=== PATIENT | male | born 1950 | race Caucasian/White ===

== ENCOUNTER → 2018-03-12 | Outpatient (CLI) | payer BC, MEDICARE ==
--- NOTE | 2018-03-12 14:53 | RAD ---
EXAM: Lumbar spine, 3 views. HISTORY: Pain. COMPARISON: None. FINDINGS: 3 views of the lumbar spine are obtained. There is lumbar dextroscoliosis centered at L4. There is mild retrolisthesis of L2 on L3 and L3 on L4. There is degenerative endplate remodeling with disc space narrowing and osteophytosis primarily at L2-L3. There is facet arthropathy at all levels. IMPRESSION: 1. Multilevel degenerative change, described above. 2. Mild scoliosis and multilevel listhesis. Electronically signed by: Kiley Pratt MD (03/12/2018 2:50 PM) [place] [id number]
== END | disposition home or self-care (01) ==
LOC: RAD 12:26
PROVIDERS: ATTEND Neurological Surgery
DX: M41.86 Other forms of scoliosis, lumbar region (principal); M47.896 Other spondylosis, lumbar region
CPT/HCPCS: 72100

== ENCOUNTER → 2018-03-25 | Outpatient (CLI) | payer BC, MEDICARE ==
[~2018-03-25] MED LIST: ASPI-630 PO; CBD OIL PO; CLOP75TA PO; DOCU-109 PO; HYDR-2762 PO; LISI1TAB5 PO; METF500T9 PO; METH750T2 PO
--- NOTE | 2018-03-25 16:09 | EKG ---
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 Electronically Signed On 03-28-2018 11:42:20 CDT by Devaughn Coelho MD
[2018-03-25 16:11] LABS: BASO # 0.1 x10^3/uL (0.0-0.2); BASO % 1 % (0-3); EOS # 0.3 x10^3/uL (0.0-0.7); EOS % 3 % (0-3); HEMATOCRIT 46.5 % (39.0-53.0); HEMOGLOBIN 15.9 g/dL (13.0-17.5); LYMPH # 2.2 x10^3/uL (1.0-4.8); LYMPH % 22 % (24-48); MEAN CORPUSCULAR HEMOGLOBIN 29 pg (25-35); MEAN CORPUSCULAR HGB CONC 34 g/dL (31-37); MEAN CORPUSCULAR VOLUME 84 fL (79-100); MONO % 10 % (0-9); NEUT # 6.7 x10^3uL (1.8-7.7); NEUT % 65 % (31-73); PLATELET COUNT 258 x10^3/uL (140-400); RED BLOOD COUNT 5.52 x10^6/uL (4.30-5.70); RED CELL DISTRIBUTION WIDTH 14.7 % (11.5-14.5); WHITE BLOOD COUNT 10.3 x10^3/uL (4.0-11.0)
[2018-03-25 16:41] LABS: ALBUMIN 3.7 g/dL (3.4-5.0); ALBUMIN/GLOBULIN RATIO 0.9 (1.0-1.7); CALCIUM 8.9 mg/dL (8.5-10.1); CREATININE 1.4 mg/dL (0.7-1.3); GFR 50.4; TOTAL BILIRUBIN 0.4 mg/dL (0.2-1.0); TOTAL PROTEIN 7.9 g/dL (6.4-8.2)
[2018-03-26 02:17] LABS: HEMOGLOBIN A1C 6.7 % (4.8-5.6)
== END | disposition home or self-care (01) ==
LOC: SURGPAT 13:39
PROVIDERS: ATTEND Neurological Surgery
DX: Z01.818 Encounter for other preprocedural examination (principal); M51.16 Intervertebral disc disorders with radiculopathy, lumbar region; M48.061 Spinal stenosis, lumbar region without neurogenic claudication; D17.79 Benign lipomatous neoplasm of other sites; M71.38 Other bursal cyst, other site; I10 Essential (primary) hypertension
CPT/HCPCS: 36415; 80053; 83036; 85025; 87641; 93005

== ENCOUNTER 2018-04-01 08:18 | Inpatient (IN) | payer BC, MEDICARE ==
--- NOTE | 2018-03-29 18:03 | PREOP HP ---
DATE OF SERVICE: 04/01/2018 HISTORY OF PRESENT ILLNESS: The patient is a pleasant 67-year-old who is having problems with low back pain and numbness on his right leg along with right hip and lateral thigh pain as well as pain and numbness in the leg on the right. The problem started about 3 years ago. Over the last year, it became more severe. He says when he tries to be active, the pain is a 10/10. Bending and standing increases pain. Sitting seems to help him. He has had chiropractic treatment extensively without significant benefit. PAST MEDICAL HISTORY: Arthritis, prostate cancer, heart attack/failure, heart trouble/disease, hypertension, diabetes. PAST SURGICAL HISTORY: Bypass surgery in 1999, coronary artery stent 2017. FAMILY HISTORY: Diabetes. SOCIAL HISTORY: Retired. . Denies exercising. Denies substance abuse. Denies tobacco use. Drinks alcohol 1-2 times per year. Drinks coffee and tea daily. ALLERGIES: No known drug allergies. CURRENT MEDICATIONS: Plavix, metformin and lisinopril. REVIEW OF SYSTEMS: A 12-point review of systems was obtained and is noncontributory except that mentioned above. PHYSICAL EXAMINATION: NEUROSURGERY EXAMINATION: GENERAL APPEARANCE: Alert, pleasant, no acute distress. HEAD: Normocephalic, atraumatic. SKIN: Warm and dry. MUSCULOSKELETAL: Lumbar paraspinal muscle bulk is normal, restricted range of motion of the lumbar spine, [id number] tenderness of lower lumbar spine with palpation, normal range of motion of the lower extremities bilaterally. EXTREMITIES: No clubbing, cyanosis or edema. NEUROLOGIC: Alert and oriented x 3, normal recent and remote memory, strength 5/5 in bilateral lower extremities. Sensory is intact to light touch in bilateral lower extremities. Reflexes were trace and symmetric in the lower extremities bilaterally, negative straight leg raising bilaterally. IMAGING: I reviewed a lumbar MRI scan. There appears to be an element of scoliosis present. He has severe lumbar spinal stenosis present at L2-L3 due to a combination of epidural lipomatosis and congenital short pedicles. At L3-L4, again there are congenital short pedicles and at this level, there is a left synovial cyst. There is also epidural lipomatosis. The spinal canal at this level has symmetric trefoil appearance. At L4-L5, there is congenitally short pedicles and epidural lipomatosis with trefoil appearance of the thecal sac and nerve root redundancy superior to this level. ASSESSMENT/ PLAN: He has problems with congenitally small canal. There is also epidural lipomatosis and hypertrophic ligament. Additionally, at L3-L4, there is synovial cyst. After evaluating his scoliosis with plain films and based on the severity of his symptoms, my recommendation is that he undergo a lumbar microdecompression with right direct laminectomy at L2-L3, L3-L4 and L4-L5. I explained this to the patient. He understands. He would like to go ahead. We will make the arrangements. SIMÓN BLACK MD DR: RADHA/henrry JOB#: [id number] / [id number] FRANK
[~2018-04-01] VITALS: Ht 182.9 cm; Wt 108.0 kg
[2018-04-01] VITALS (9 sets, daily range): BP systolic 112–143; BP diastolic 63–87
[~2018-04-01 08:18] MED LIST changes: +BACITRACIN 50,000 UNIT in IV NORMAL SALINE 1000ML BAG 1,000 ML IRR ONE; +BUPIVAC MPF-EPI 0.5%-1:200000 30 ML VIAL. ONE; -DOCU-109 PO; +GELATIN SPONGE SIZE 100. ONE; -HYDR-2762 PO; +HYDROmorphone 2 MG/ML VIAL IV PRN; +IV RINGERS,LACTATED 1000ML 1,000 ML IV SCH; +KETOROLAC 60 MG/2 ML INJ FOR OR. ONE; +LIDOCAINE 1% PF 2 ML VIAL. ID PRN; -METH750T2 PO; +MORPHINE SULFATE 2 MG/ML VIAL. IV PRN; +ONDANSETRON PF 4 MG/2 ML VIAL. IV PRN; +PROCHLORPERAZINE 10 MG/2 ML VIAL. IV PRN; +fentaNYL PF VIAL 100 MCG/2 ML VIAL IV PRN
--- NOTE | 2018-04-01 09:04 | EKG ---
[facility] [address] [place] [address] Test Date: 2018-04-01 Test Time: 09:12:49 Pat Name: GONZALEZ ECHEVERRIA Department: Room: Gender: M Loom Repairer: : 1950 Requested By: SIMÓN BLACK Order Number: [id number] Reading MD: Devaughn Coleho MD Measurements Intervals [place] Rate: 81 P: -89 IN: 170 QRS: -10 QRSD: 130 T: -44 QT: 406 QTc: 472 Interpretive Statements SINUS RHYTHM LAFB NON-SPECIFIC ST/T CHANGES Electronically Signed On 04-01-2018 15:34:28 [employer]CH STORE MANAGER by Devaughn Coelho MD
[2018-04-01] MEDS ORDERED: PROPOFOL 100 ML IV ONE (09:24)
[2018-04-01] MEDS ORDERED: GLYCOPYRROLATE 1 MG/5 ML VIAL. ONE (09:29)
[2018-04-01] MEDS ORDERED: fentaNYL PF VIAL 100 MCG/2 ML VIAL ONE (09:30)
[2018-04-01] MEDS ORDERED: MIDAZOLAM HCL/PF 2 MG/2 ML VIAL. ONE (09:30)
[2018-04-01] MEDS ORDERED: NEOSTIGMINE METHYLSULFATE 5 MG/5 ML SYRINGE. ONE (09:30)
[2018-04-01] MEDS ORDERED: ROCURONIUM 50 MG/5 ML VIAL. ONE (09:30)
[2018-04-01] MEDS ORDERED: REMIFENTANIL 2 MG VIAL. IV ONE (09:30)
[2018-04-01] MEDS ORDERED: ONDANSETRON PF 4 MG/2 ML VIAL. ONE (09:31)
[2018-04-01] MEDS ORDERED: MINERAL OIL/PETROLATUM,WHITE OPHTH OINT 3.5GM TUBE. ONE (09:31)
[2018-04-01] MEDS ORDERED: DEXAMETHASONE SOD PHOS 20 MG/5 ML VIAL. ONE (09:31)
[2018-04-01] MEDS ORDERED: PHENYLEPHRINE 10 MG/ML VIAL. ONE (09:31)
[2018-04-01] MEDS ORDERED: PROPOFOL 20 ML IV ONE (09:31)
[2018-04-01] MEDS ORDERED: DESFLURANE > 120 MINUTES IH ONE (09:36)
[2018-04-01] MEDS: POTASSIUM CL 20MEQ-0.45% NACL 1,000 ML IV SCH ×2 (11:31→17:37)
[2018-04-01] MEDS ORDERED: ONDANSETRON PF 4 MG/2 ML VIAL. IV PRN (11:45)
[2018-04-01] MEDS ORDERED: 0.9 % SODIUM CHLORIDE 10 ML DISP.SYRIN. IV PRN (11:45)
[2018-04-01] MEDS ORDERED: MAG HYDROX/ALUMINUM HYD/SIMETH 30 ML ORAL.SUSP PO PRN (11:45)
[2018-04-01] MEDS ORDERED: MAGNESIUM HYDROXIDE 2,400 MG/30 ML ORAL.SUSP. PO PRN (11:45)
[2018-04-01] MEDS ORDERED: DEXTROSE 50% 25 GM / 50ML DISP.SYRIN. IV PRN (11:45)
[2018-04-01] MEDS ORDERED: diphenhydrAMINE HCL 25 MG CAPSULE PO PRN (11:45)
[2018-04-01] MEDS ORDERED: CALCIUM CARBONATE 500 MG TAB.CHEW PO PRN (11:45)
[2018-04-01] MEDS ORDERED: ZOLPIDEM 5 MG TABLET. PO PRN (11:45)
[2018-04-01] MEDS ORDERED: NALOXONE 0.4 MG/ML VIAL. IV PRN (11:45)
[2018-04-01] MEDS ORDERED: hydroCHLOROthiazide 12.5 MG CAPSULE PO SCH (13:00)
[2018-04-01] MEDS: LISINOPRIL 20 MG TABLET PO SCH (13:00)
[2018-04-01] MEDS: METHOCARBAMOL 750 MG TABLET PO SCH ×2 (14:00→21:14)
[2018-04-01] MEDS: fentaNYL PF VIAL 100 MCG/2 ML VIAL IV PRN ×6 (15:13→22:22)
--- NOTE | 2018-04-01 16:34 | OP ---
DATE OF SURGERY: 04/01/2018 PREOPERATIVE DIAGNOSES: 1. Epidural lipomatosis and lumbar spinal stenosis at L2-L3, L3-L4, L4-L5. 2. Synovial cyst, L3-L4, left. POSTOPERATIVE DIAGNOSES: 1. Epidural lipomatosis and lumbar spinal stenosis at L2-L3, L3-L4, L4-L5. 2. Synovial cyst, L3-L4, left. OPERATION PERFORMED: Right direct laminectomy L2-L3, L3-L4, L4-L5 with debulking of epidural lipomatosis and removal of synovial cyst. The operation was done with EMG monitoring, SSEP monitoring, fluoroscopy, microscopic dissection. SURGEON: Real Black M.D. GROUND INTELLIGENCE OFFICER: NANCI Ang assisted with the surgery. She assisted with the micro decompression. OPERATIVE INDICATIONS: The patient is a pleasant 67-year-old man who developed intractable back and right leg pain which failed conservative measures. On imaging studies, he was found to have stenosis at L2-L3, L3-L4 and L4-L5 with very severe stenosis at L3-L4. At L3-L4, in addition to the trefoil-shaped canal and hypertrophic facet and ligament, there was a left-sided synovial cyst. I recommended right direct laminectomies at L2-L3, L3-L4 and L4-L5. I spoke with him about the surgery and the risks involved. He understood and he wished to go ahead. DESCRIPTION OF PROCEDURE: Following general endotracheal anesthesia, the patient was positioned prone on the Joaquín table. Lumbar region was prepped and draped in standard fashion. AGUILAR hose and AV impulse boots were applied for DVT prophylaxis. Microscope was draped. Fluoroscopy was draped and brought into the field. Monitoring was established. Ancef 2 grams was given less than 1 hour prior to initiation of surgery. Using fluoroscopic guidance, an incision was made from L2 to L5. I dissected down the second skin and subcutaneous tissue, reflected the paraspinal muscles toward the right and directed my attention to L4-L5. I placed the [place] micro disc retractor. I brought in the microscope and the remainder of surgery was done with the microscope using microscopic technique. I burred down a generous hemilaminotomy. I tilted the bed away from me and then drilled across to the contralateral midline. There was a very abundant epidural fat, which was markedly compressing the dura and I worked and peeled this material away. I then performed a generous partial foraminotomy. I worked laterally and palpated the disc, which was bulging, but heavily calcified and no discectomy was warranted. There were a number of very large epidural veins, which I coagulated. Following this, I obtained hemostasis with the use of bone wax as well as bipolar cautery. I then moved up to L3-L4 and in a similar fashion drilled a very generous hemilaminotomy, tilted the patient away from me and then drilled across the base of the spinous process on the contralateral side and then began to drill away the synovial cyst. The majority of the cyst was heavily calcified and I worked and I drilled the majority of this. The inferior small portion of the cyst was again calcified and was not amenable to complete removal, although the overall structure had been vastly debulked. I worked and trimmed away ligamentum flavum and fully decompressed the entire region. I then worked superiorly, inferiorly and removed epidural fat and decompressed the dura. I performed a generous partial foraminotomy. I again palpated the disc, it was firm, no discectomy was warranted. I did remove bone quite far inferiorly and removed much of the epidural fat that I could reach. I then went to L2-L3, and performed a similar generous hemilaminotomy, trimmed away the very thickened ligamentum flavum, performed a partial foraminotomy and drilled and fully decompressed this level as well, again removing a considerable amount of epidural fat and fully decompressing the entire region. I irrigated copiously with antibiotic solution and I had an excellent decompression at all 3 levels. I removed the retractor and I obtained excellent hemostasis. I closed the wound in layers with absorbable suture and skin was closed with 4-0 subcuticular stitch. The operation went very well and the patient was awakened and taken to Recovery Room in excellent condition. I was quite pleased with the surgery. REAL BLACK MD DR: RADHA/henrry JOB#: [id number] / [id number] FRANK
[2018-04-01] MEDS ORDERED: fentaNYL PF VIAL 100 MCG/2 ML VIAL IV PRN (16:45)
[2018-04-01] MEDS: HYDROcodone/APAP 7.5/325MG 1 TAB TABLET PO PRN ×2 (17:37→23:45)
[2018-04-01] MEDS: metFORMIN XR 500 MG TAB.ER.24H PO SCH (17:37)
[2018-04-01] MEDS: DOCUSATE SODIUM 100 MG CAPSULE. PO SCH (21:00)
[2018-04-01] MEDS: ACETAMINOPHEN 325 MG TABLET. PO PRN (21:14)
[2018-04-02 03:04] VITALS: BP 120/68
[2018-04-02] MEDS: HYDROcodone/APAP 7.5/325MG 1 TAB TABLET PO PRN ×3 (06:17→19:50)
[2018-04-02 07:01] VITALS: BP 123/75
[2018-04-02] MEDS: DOCUSATE SODIUM 100 MG CAPSULE. PO SCH ×2 (08:10→21:27)
[2018-04-02] MEDS: ASPIRIN CHEWABLE 81 MG TABLET. PO SCH (08:10)
[2018-04-02] MEDS: metFORMIN XR 500 MG TAB.ER.24H PO SCH (08:10)
[2018-04-02] MEDS: hydroCHLOROthiazide 12.5 MG CAPSULE PO SCH (08:10)
[2018-04-02] MEDS: METHOCARBAMOL 750 MG TABLET PO SCH ×3 (08:11→19:50)
[2018-04-02] MEDS: LISINOPRIL 20 MG TABLET PO SCH (08:11)
[2018-04-02] MEDS ORDERED: METH750T2 PO (08:38)
[2018-04-02] MEDS ORDERED: DOCU-109 PO (08:38)
[2018-04-02] MEDS ORDERED: HYDR-2762 PO (08:38)
--- NOTE | 2018-04-02 09:02 | PDOC ---
PROGRESS NOTES Subjective Subjective POD #1 not OOB yet back sore Objective Objective Vital Signs Date Time Temp Pulse Resp B/P (MAP) Pulse Ox O2 Delivery O2 Flow Rate FiO2 04/02/18 08:11 91 123/75 04/02/18 07:50 Room Air 04/02/18 07:01 98.9 16 94.0 98.9 04/02/18 06:17 93 Intake and Output 04/02/18 07:00 Intake Total 3560 ml Output Total 900 ml Balance 2660 ml Intake Oral 1000 ml IV Total 2180 ml Other 380 ml Output Urine Total 850 ml Estimated Blood Loss 50 ml Physical Exam General: Alert, Oriented X3, Cooperative, No acute distress MUSCULOSKELETAL: Other (SILVA) Skin: Other (dressing C,D,I, flat) Plan Plan of Care possible dc later today if does OK with PT Comment Review of Relevant I have reviewed the following items maira (where applicable) has been applied. Labs Laboratory Tests Test 04/01/18 09:27 04/01/18 16:09 04/02/18 06:16 Glucose (Fingerstick) 168 mg/dL (70-99) 194 mg/dL (70-99) 126 mg/dL (70-99) Laboratory Tests Test 04/01/18 09:27 04/01/18 16:09 04/02/18 06:16 Glucose (Fingerstick) 168 mg/dL (70-99) 194 mg/dL (70-99) 126 mg/dL (70-99) Medications Current Medications Ondansetron HCl (Zofran) 4 mg PRN Q6HRS PRN IV NAUSEA/VOMITING; Start 04/01/18 at 07:00; Stop 04/02/18 at 06:59; Status DC Fentanyl Citrate (Fentanyl 2ml Vial) 25 mcg PRN Q5MIN PRN IV MILD PAIN; Start 04/01/18 at 07:00; Stop 04/02/18 at 06:59; Status DC Fentanyl Citrate (Fentanyl 2ml Vial) 50 mcg PRN Q5MIN PRN IV MODERATE TO SEVERE PAIN Last administered on 04/01/18at 16:10; Start 04/01/18 at 07:00; Stop 04/02/18 at 06:59; Status DC Morphine Sulfate (Morphine Sulfate) 1 mg PRN Q10MIN PRN IV SEVERE PAIN; Start 04/01/18 at 07:00; Stop 04/02/18 at 06:59; Status DC Ringer's Solution 1,000 ml @ 30 mls/hr Q24H IV Last administered on 04/01/18at 09:32; Start 04/01/18 at 07:00; Stop 04/01/18 at 18:59; Status DC Lidocaine HCl (Xylocaine-Mpf 1% 2ml Vial) 2 ml PRN 1X PRN ID PRIOR TO IV START ; Start 04/01/18 at 07:00; Stop 04/02/18 at 06:59; Status DC Hydromorphone HCl (Dilaudid) 0.5 mg PRN Q10MIN PRN IV SEV PAIN, Second choice; Start 04/01/18 at 07:00; Stop 04/02/18 at 06:59; Status DC Prochlorperazine Edisylate (Compazine) 5 mg PACU PRN PRN IV NAUSEA, MRX1; Start 04/01/18 at 07:00; Stop 04/02/18 at 06:59; Status DC Bacitracin 77762 unit/Sodium Chloride 1,000 ml @ 1,000 mls/hr 1X ONCE IRR Last administered on 04/01/18at 12:04; Start 04/01/18 at 06:00; Stop 04/01/18 at 06:59; Status DC Cefazolin Sodium/ Dextrose 50 ml @ 100 mls/hr 1X PREOP PRN IV PRIOR TO PROCEDURE Last administered on 04/01/18at 11:37; Start 04/01/18 at 06:00; Stop 04/01/18 at 18:00; Status DC Gelatin (Gelfoam Size 100) 1 each STK-MED ONCE .ROUTE Last administered on 04/01/18at 12:04; Start 04/01/18 at 07:17; Stop 04/01/18 at 07:18; Status DC Bupivacaine HCl/ Epinephrine Bitart (Sensorcain-Mpf Epi 0.5%-1:[id number]) 30 ml STK -MED ONCE .ROUTE Last administered on 04/01/18at 12:04; Start 04/01/18 at 07:17 ; Stop 04/01/18 at 07:18; Status DC Ketorolac Tromethamine (Toradol For Or Only) 60 mg STK-MED ONCE .ROUTE Last administered on 04/01/18at 12:04; Start 04/01/18 at 07:17; Stop 04/01/18 at 07:18 ; Status DC Propofol 100 ml @ As Directed STK-MED ONCE IV ; Start 04/01/18 at 09:24; Stop 04/01/18 at 09:25; Status DC Glycopyrrolate (Robinul) 1 mg STK-MED ONCE .ROUTE ; Start 04/01/18 at 09:29; Stop 04/01/18 at 09:30; Status DC Fentanyl Citrate (Fentanyl 2ml Vial) 100 mcg STK-MED ONCE .ROUTE ; Start at 09:30; Stop 04/01/18 at 09:31; Status DC Rocuronium [place] (Zemuron) 50 mg STK-MED ONCE .ROUTE ; Start 04/01/18 at 09:30 ; Stop 04/01/18 at 09:31; Status DC Neostigmine Methylsulfate (Neostigmine Methylsulfate) 5 mg STK-MED ONCE .ROUTE ; Start 04/01/18 at 09:30; Stop 04/01/18 at 09:31; Status DC Midazolam HCl (Versed) 2 mg STK-MED ONCE .ROUTE ; Start 04/01/18 at 09:30; Stop 04/01/18 at 09:31; Status DC Remifentanil HCl (Ultiva) 2 mg STK-MED ONCE IV ; Start 04/01/18 at 09:30; Stop 04/01/18 at 09:31; Status DC Propofol 20 ml @ As Directed STK-MED ONCE IV ; Start 04/01/18 at 09:31; Stop at 09:32; Status DC Multi-Ingred Cream/Lotion/Oil/ Oint (Artificial Tears Eye Ointment) 7 cornelia STK- MED ONCE .ROUTE ; Start 04/01/18 at 09:31; Stop 04/01/18 at 09:32; Status DC Dexamethasone Sodium Phosphate (Decadron) 20 mg STK-MED ONCE .ROUTE ; Start 04/01/18 at 09:31; Stop 04/01/18 at 09:32; Status DC Ondansetron HCl (Zofran) 4 mg STK-MED ONCE .ROUTE ; Start 04/01/18 at 09:31; Stop 04/01/18 at 09:32; Status DC Phenylephrine HCl (Td-Synephrine Inj) 10 mg STK-MED ONCE .ROUTE ; Start at 09:31; Stop 04/01/18 at 09:32; Status DC Desflurane (Suprane) 90 ml STK-MED ONCE IH ; Start 04/01/18 at 09:36; Stop 04/01 at 09:37; Status DC Aspirin (Children'S Aspirin) 81 mg DAILY PO Last administered on 04/02/18at 08: 10; Start 04/02/18 at 09:00 Lisinopril (Prinivil) 20 mg DAILY PO Last administered on 04/02/18at 08:11; Start 04/01/18 at 13:00 Hydrochlorothiazide (Microzide) 12.5 mg DAILY PO ; Start 04/01/18 at 13:00; Stop 04/01/18 at 17:01; Status DC Dextrose (Dextrose 50%-Water Syringe) 12.5 gm PRN Q15MIN PRN IV SEE COMMENTS; Start 04/01/18 at 11:45 Acetaminophen (Tylenol) 650 mg PRN Q6HRS PRN PO MILD PAIN / TEMP Last administered on 04/01/18at 21:14; Start 04/01/18 at 11:45 Al Hydroxide/Mg Hydroxide (Mylanta Plus Xs) 30 ml PRN Q3HRS PRN PO HEARTBURN / GAS; Start 04/01/18 at 11:45 Calcium Carbonate/ Glycine (Tums) 500 mg PRN Q3HRS PRN PO INDIGESTION; Start 04/01/18 at 11:45 Diphenhydramine HCl (Benadryl) 25 mg PRN Q6HRS PRN PO ITCHING; Start 04/01/18 at 11:45 Zolpidem Tartrate (Ambien) 5 mg PRN QHS PRN PO INSOMNIA, MAY REPEAT IN 1HR; Start 04/01/18 at 11:45 Naloxone HCl (Narcan) 0.1 mg PRN Q2MIN PRN IV ADMIN; Start 04/01/18 at 11:45 Sodium Chloride (Normal Saline Flush) 3 ml QSHIFT PRN IV AFTER MEDS AND BLOOD DRAWS; Start 04/01/18 at 11:45 Potassium Chloride/Sodium Chloride 1,000 ml @ 75 mls/hr [id number] IV Last administered on 04/01/18at 17:37; Start 04/01/18 at 11:31; Stop 04/02/18 at 08:48 ; Status DC Methocarbamol (Robaxin) 750 mg TID PO Last administered on 04/02/18at 08:11; Start 04/01/18 at 14:00 Docusate Sodium (Colace) 100 mg BID PO Last administered on 04/02/18at 08:10; Start 04/01/18 at 21:00 Magnesium Hydroxide (Milk Of Magnesia) 2,400 mg PRN Q12HR PRN PO CONSTIPATION; Start 04/01/18 at 11:45 Ondansetron HCl (Zofran) 4 mg PRN Q6HRS PRN IV NAUESA, 1ST CHOICE; Start at 11:45 Acetaminophen/ Hydrocodone Bitart (Lortab 7.5/325) 1 tab PRN Q6HRS PRN PO PAIN Last administered on 04/01/18at 17:37; Start 04/01/18 at 11:45 Acetaminophen/ Hydrocodone Bitart (Lortab 7.5/325) 2 tab PRN Q6HRS PRN PO PAIN Last administered on 04/02/18at 06:17; Start 04/01/18 at 11:45 Fentanyl Citrate (Fentanyl 2ml Vial) 50 mcg PRN Q2HR PRN IV PAIN Last administered on 04/01/18at 22:22; Start 04/01/18 at 16:45 Fentanyl Citrate (Fentanyl 2ml Vial) 25 mcg PRN Q2HR PRN IV PAIN; Start at 16:45 Metformin HCl (Glucophage Xr) 500 mg DAILYWBKFT PO Last administered on at 08:10; Start 04/01/18 at 17:30 Hydrochlorothiazide (Microzide) 12.5 mg DAILY PO Last administered on at 08:10; Start 04/02/18 at 09:00 Clopidogrel Bisulfate (Plavix) 75 mg DAILYWBKFT PO ; Start 04/02/18 at 09:00 Active Scripts Active Reported [Cbd Oil] 1 Cornelia PO DAILY Clopidogrel (Clopidogrel Bisulfate) 75 Mg Tablet 75 Mg PO DAILY Lisinopril-Hctz 20-12.5 Mg Tab (Lisinopril/Hydrochlorothiazide) 1 Each Tablet 1 Tab PO DAILY Metformin Hcl Er (Metformin Hcl) 500 Mg Tab.er.24h 500 Mg PO DAILY Aspirin 81 Mg Tab.chew 81 Mg PO DAILY Vitals/I & O Vital Sign - Last 24 Hours 04/01/18 04/01/18 04/01/18 04/01/18 09:29 09:30 14:48 14:48 Temp 98.5 98.5 99.0 98.5 98.5 99.0 Pulse 81 97 89 Resp 16 16 18 B/P (MAP) 112/65 135/62 Pulse Ox 95 96 98 O2 Delivery Room Air Simple Mask Mask O2 Flow Rate 8 8 04/01/18 04/01/18 04/01/18 04/01/18 15:05 15:13 15:20 15:25 Pulse 100 102 Resp 24 20 20 20 B/P (MAP) 139/53 140/87 Pulse Ox 99 93 95 96 O2 Delivery Simple Mask Room Air Room Air Room Air O2 Flow Rate 8 04/01/18 04/01/18 04/01/18 04/01/18 15:40 15:55 16:10 16:22 Pulse 97 100 Resp 16 16 20 20 B/P (MAP) 163/48 126/54 Pulse Ox 96 95 95 93 O2 Delivery Room Air Room Air Room Air Room Air 04/01/18 04/01/18 04/01/18 04/01/18 16:30 16:44 16:45 17:00 Temp 98.5 98.5 Pulse 90 94 94 Resp 18 20 20 B/P (MAP) 120/63 (82) 112/68 (83) 143/87 (105) Pulse Ox 92 93 94 O2 Delivery Nasal Cannula Nasal Cannula Nasal Cannula Nasal Cannula O2 Flow Rate 1.5 1.5 1.5 1.5 04/01/18 04/01/18 04/01/18 04/01/18 17:15 17:37 17:40 18:54 Pulse 98 94 Resp 20 19 20 18 B/P (MAP) 113/77 (89) 134/82 (99) Pulse Ox 96 94 O2 Delivery Nasal Cannula Nasal Cannula Nasal Cannula Nasal Cannula O2 Flow Rate 1.5 1.5 1.5 04/01/18 04/01/18 04/01/18 04/01/18 18:54 19:55 20:05 21:05 Temp 98.6 99.2 98.6 99.2 Pulse 101 98 98 Resp 18 16 16 B/P (MAP) 120/73 (89) 140/81 (100) 113/68 (83) Pulse Ox 92 95 94 O2 Delivery Nasal Cannula Nasal Cannula Nasal Cannula Room Air O2 Flow Rate 1.5 1.5 1.5 1.5 04/01/18 04/01/18 04/01/18 04/01/18 22:22 23:00 23:01 23:45 Temp 98.5 98.5 Pulse 84 Resp 16 16 18 16 B/P (MAP) 121/73 (89) Pulse Ox 94 94 95 O2 Delivery Nasal Cannula Nasal Cannula Nasal Cannula Nasal Cannula O2 Flow Rate 1.5 1.5 1.5 1.5 04/02/18 04/02/18 04/02/18 04/02/18 00:50 03:04 06:17 07:01 Temp 98.9 98.9 Pulse 96 91 Resp 16 16 16 16 B/P (MAP) 120/68 (85) 123/75 (91) Pulse Ox 93 93 O2 Delivery Nasal Cannula Nasal Cannula Room Air Room Air O2 Flow Rate 1.5 1.5 94.0 04/02/18 04/02/18 07:50 08:11 Pulse 91 B/P (MAP) 123/75 O2 Delivery Room Air Intake and Output 04/01/18 04/01/18 04/02/18 15:00 23:00 07:00 Intake Total 1800 ml 550 ml 1210 ml Output Total 50 ml 250 ml 600 ml Balance 1750 ml 300 ml 610 ml PATRICE NUNES APRN Apr 02, 2018 09:02
[2018-04-02] MEDS: CLOPIDOGREL BISULFATE 75 MG TABLET PO SCH (09:27)
[2018-04-02] MEDS: fentaNYL PF VIAL 100 MCG/2 ML VIAL IV PRN (09:56)
[2018-04-02 10:52] VITALS: BP 120/82
[2018-04-02 14:55] VITALS: BP 91/59
[2018-04-02 18:06] VITALS: BP 92/63
[2018-04-02 22:29] VITALS: BP 100/57
[2018-04-03] MEDS: HYDROcodone/APAP 7.5/325MG 1 TAB TABLET PO PRN ×3 (01:29→13:41)
[2018-04-03] MEDS: ACETAMINOPHEN 325 MG TABLET. PO PRN (02:54)
[2018-04-03 03:10] VITALS: BP 105/63
[2018-04-03 06:03] VITALS: BP 93/57
[2018-04-03] MEDS: DOCUSATE SODIUM 100 MG CAPSULE. PO SCH (08:49)
[2018-04-03] MEDS: METHOCARBAMOL 750 MG TABLET PO SCH ×2 (08:49→13:41)
[2018-04-03] MEDS: ASPIRIN CHEWABLE 81 MG TABLET. PO SCH (08:50)
[2018-04-03] MEDS: metFORMIN XR 500 MG TAB.ER.24H PO SCH (08:50)
[2018-04-03] MEDS: CLOPIDOGREL BISULFATE 75 MG TABLET PO SCH (08:50)
[2018-04-03] MEDS: hydroCHLOROthiazide 12.5 MG CAPSULE PO SCH (08:53)
[2018-04-03] MEDS: LISINOPRIL 20 MG TABLET PO SCH (08:54)
[2018-04-03 08:55] VITALS: BP 130/78
[2018-04-03 10:54] VITALS: BP 97/64
--- NOTE | 2018-04-03 11:49 | DISCH ---
DISCHARGE INSTRUCTIONS Condition on Discharge Condition on Discharge: Stable Activity After Discharge Activity Instructions for Disc: Activity as tolerated, Avoid exertion Bathing Instructions: Shower-keep dressing dry, No Tub Bath until see Lifting Instructions after Dis: No heavy lifting, No pulling or pushing, Do not lift >10 pounds Driving Instructions after Dis: No driving for 2 weeks Diet after Discharge Additional Diet Restrictions: resume home diet Wound Incision Care Wound/Incision Care: Ice to area for comfort Other wound/incision instructi: may remove dressing in 48 hrs if dry then m marco shower, no soaking Contacting the after DC Call your doctor for: Concerns you may have Follow-Up Follow up with: Dr. Black's nurse in 2 weeks [phone] SIMÓN BLACK MD Apr 03, 2018 11:48
--- NOTE | 2018-04-03 11:53 | PDOC ---
PROGRESS NOTES Subjective Subjective POD #2 up in chair eating lunch wants to go home pain improved Objective Objective Vital Signs Date Time Temp Pulse Resp B/P (MAP) Pulse Ox O2 Delivery O2 Flow Rate FiO2 04/03/18 10:54 98.9 94 16 97/64 (75) Room Air 98.9 04/03/18 06:03 93 04/02/18 07:01 94.0 Intake and Output 04/03/18 07:00 Intake Total 450 ml Output Total 450 ml Balance 0 ml Intake Oral 450 ml Output Urine Total 450 ml # Voids 1 Physical Exam General: Alert, Oriented X3, Cooperative, No acute distress MUSCULOSKELETAL: Other (SILVA) Skin: Other (dressing C,D,I, flat) Plan Plan of Care patient and refusing SNF and HH therapy possible dc today Comment Review of Relevant I have reviewed the following items maira (where applicable) has been applied. Labs Laboratory Tests Test 04/01/18 16:09 04/02/18 06:16 04/02/18 10:32 04/02/18 16:39 Glucose (Fingerstick) 194 mg/dL (70-99) 126 mg/dL (70-99) 134 mg/dL (70-99) 166 mg/dL (70-99) Test 04/02/18 20:59 04/03/18 06:40 04/03/18 10:50 Glucose (Fingerstick) 168 mg/dL (70-99) 151 mg/dL (70-99) 175 mg/dL (70-99) Laboratory Tests Test 04/02/18 16:39 04/02/18 20:59 04/03/18 06:40 04/03/18 10:50 Glucose (Fingerstick) 166 mg/dL (70-99) 168 mg/dL (70-99) 151 mg/dL (70-99) 175 mg/dL (70-99) Medications Current Medications Ondansetron HCl (Zofran) 4 mg PRN Q6HRS PRN IV NAUSEA/VOMITING; Start 04/01/18 at 07:00; Stop 04/02/18 at 06:59; Status DC Fentanyl Citrate (Fentanyl 2ml Vial) 25 mcg PRN Q5MIN PRN IV MILD PAIN; Start 04/01/18 at 07:00; Stop 04/02/18 at 06:59; Status DC Fentanyl Citrate (Fentanyl 2ml Vial) 50 mcg PRN Q5MIN PRN IV MODERATE TO SEVERE PAIN Last administered on 04/01/18at 16:10; Start 04/01/18 at 07:00; Stop 04/02/18 at 06:59; Status DC Morphine Sulfate (Morphine Sulfate) 1 mg PRN Q10MIN PRN IV SEVERE PAIN; Start 04/01/18 at 07:00; Stop 04/02/18 at 06:59; Status DC Ringer's Solution 1,000 ml @ 30 mls/hr Q24H IV Last administered on 04/01/18at 09:32; Start 04/01/18 at 07:00; Stop 04/01/18 at 18:59; Status DC Lidocaine HCl (Xylocaine-Mpf 1% 2ml Vial) 2 ml PRN 1X PRN ID PRIOR TO IV START ; Start 04/01/18 at 07:00; Stop 04/02/18 at 06:59; Status DC Hydromorphone HCl (Dilaudid) 0.5 mg PRN Q10MIN PRN IV SEV PAIN, Second choice; Start 04/01/18 at 07:00; Stop 04/02/18 at 06:59; Status DC Prochlorperazine Edisylate (Compazine) 5 mg PACU PRN PRN IV NAUSEA, MRX1; Start 04/01/18 at 07:00; Stop 04/02/18 at 06:59; Status DC Bacitracin 32942 unit/Sodium Chloride 1,000 ml @ 1,000 mls/hr 1X ONCE IRR Last administered on 04/01/18at 12:04; Start 04/01/18 at 06:00; Stop 04/01/18 at 06:59; Status DC Cefazolin Sodium/ Dextrose 50 ml @ 100 mls/hr 1X PREOP PRN IV PRIOR TO PROCEDURE Last administered on 04/01/18at 11:37; Start 04/01/18 at 06:00; Stop 04/01/18 at 18:00; Status DC Gelatin (Gelfoam Size 100) 1 each STK-MED ONCE .ROUTE Last administered on 04/01/18at 12:04; Start 04/01/18 at 07:17; Stop 04/01/18 at 07:18; Status DC Bupivacaine HCl/ Epinephrine Bitart (Sensorcain-Mpf Epi 0.5%-1:[id number]) 30 ml STK -MED ONCE .ROUTE Last administered on 04/01/18at 12:04; Start 04/01/18 at 07:17 ; Stop 04/01/18 at 07:18; Status DC Ketorolac Tromethamine (Toradol For Or Only) 60 mg STK-MED ONCE .ROUTE Last administered on 04/01/18at 12:04; Start 04/01/18 at 07:17; Stop 04/01/18 at 07:18 ; Status DC Propofol 100 ml @ As Directed STK-MED ONCE IV ; Start 04/01/18 at 09:24; Stop 04/01/18 at 09:25; Status DC Glycopyrrolate (Robinul) 1 mg STK-MED ONCE .ROUTE ; Start 04/01/18 at 09:29; Stop 04/01/18 at 09:30; Status DC Fentanyl Citrate (Fentanyl 2ml Vial) 100 mcg STK-MED ONCE .ROUTE ; Start at 09:30; Stop 04/01/18 at 09:31; Status DC Rocuronium [place] (Zemuron) 50 mg STK-MED ONCE .ROUTE ; Start 04/01/18 at 09:30 ; Stop 04/01/18 at 09:31; Status DC Neostigmine Methylsulfate (Neostigmine Methylsulfate) 5 mg STK-MED ONCE .ROUTE ; Start 04/01/18 at 09:30; Stop 04/01/18 at 09:31; Status DC Midazolam HCl (Versed) 2 mg STK-MED ONCE .ROUTE ; Start 04/01/18 at 09:30; Stop 04/01/18 at 09:31; Status DC Remifentanil HCl (Ultiva) 2 mg STK-MED ONCE IV ; Start 04/01/18 at 09:30; Stop 04/01/18 at 09:31; Status DC Propofol 20 ml @ As Directed STK-MED ONCE IV ; Start 04/01/18 at 09:31; Stop at 09:32; Status DC Multi-Ingred Cream/Lotion/Oil/ Oint (Artificial Tears Eye Ointment) 7 cornelia STK- MED ONCE .ROUTE ; Start 04/01/18 at 09:31; Stop 11/5/18 at 09:32; Status DC Dexamethasone Sodium Phosphate (Decadron) 20 mg STK-MED ONCE .ROUTE ; Start 04/01/18 at 09:31; Stop 04/01/18 at 09:32; Status DC Ondansetron HCl (Zofran) 4 mg STK-MED ONCE .ROUTE ; Start 04/01/18 at 09:31; Stop 04/01/18 at 09:32; Status DC Phenylephrine HCl (Td-Synephrine Inj) 10 mg STK-MED ONCE .ROUTE ; Start at 09:31; Stop 04/01/18 at 09:32; Status DC Desflurane (Suprane) 90 ml STK-MED ONCE IH ; Start 04/01/18 at 09:36; Stop 04/01 at 09:37; Status DC Aspirin (Children'S Aspirin) 81 mg DAILY PO Last administered on 04/03/18at 08: 50; Start 04/02/18 at 09:00 Lisinopril (Prinivil) 20 mg DAILY PO Last administered on 04/03/18at 08:54; Start 04/01/18 at 13:00 Hydrochlorothiazide (Microzide) 12.5 mg DAILY PO ; Start 04/01/18 at 13:00; Stop 04/01/18 at 17:01; Status DC Dextrose (Dextrose 50%-Water Syringe) 12.5 gm PRN Q15MIN PRN IV SEE COMMENTS; Start 04/01/18 at 11:45 Acetaminophen (Tylenol) 650 mg PRN Q6HRS PRN PO MILD PAIN / TEMP Last administered on 04/03/18at 02:54; Start 04/01/18 at 11:45 Al Hydroxide/Mg Hydroxide (Mylanta Plus Xs) 30 ml PRN Q3HRS PRN PO HEARTBURN / GAS; Start 04/01/18 at 11:45 Calcium Carbonate/ Glycine (Tums) 500 mg PRN Q3HRS PRN PO INDIGESTION; Start 04/01/18 at 11:45 Diphenhydramine HCl (Benadryl) 25 mg PRN Q6HRS PRN PO ITCHING Last administered on 04/02/18at 21:27; Start 04/01/18 at 11:45 Zolpidem Tartrate (Ambien) 5 mg PRN QHS PRN PO INSOMNIA, MAY REPEAT IN 1HR; Start 04/01/18 at 11:45 Naloxone HCl (Narcan) 0.1 mg PRN Q2MIN PRN IV ADMIN; Start 04/01/18 at 11:45 Sodium Chloride (Normal Saline Flush) 3 ml QSHIFT PRN IV AFTER MEDS AND BLOOD DRAWS; Start 04/01/18 at 11:45 Potassium Chloride/Sodium Chloride 1,000 ml @ 75 mls/hr [id number] IV Last administered on 04/01/18at 17:37; Start 04/01/18 at 11:31; Stop 04/02/18 at 08:48 ; Status DC Methocarbamol (Robaxin) 750 mg TID PO Last administered on 04/03/18 08:49; Start 04/01/18 at 14:00 Docusate Sodium (Colace) 100 mg BID PO Last administered on 04/03/18at 08:49; Start 04/01/18 at 21:00 Magnesium Hydroxide (Milk Of Magnesia) 2,400 mg PRN Q12HR PRN PO CONSTIPATION; Start 04/01/18 at 11:45 Ondansetron HCl (Zofran) 4 mg PRN Q6HRS PRN IV NAUESA, 1ST CHOICE; Start at 11:45 Acetaminophen/ Hydrocodone Bitart (Lortab 7.5/325) 1 tab PRN Q6HRS PRN PO PAIN MODERATE Last administered on 04/03/18at 08:50; Start 04/01/18 at 11:45 Acetaminophen/ Hydrocodone Bitart (Lortab 7.5/325) 2 tab PRN Q6HRS PRN PO PAIN SEVERE Last administered on 04/02/18at 06:17; Start 04/01/18 at 11:45 Fentanyl Citrate (Fentanyl 2ml Vial) 50 mcg PRN Q2HR PRN IV PAIN SEVERE 2ND CHOICE Last administered on 04/02/18at 09:56; Start 04/01/18 at 16:45 Fentanyl Citrate (Fentanyl 2ml Vial) 25 mcg PRN Q2HR PRN IV SEVERE PAIN 1ST CHOICE; Start 04/01/18 at 16:45 Metformin HCl (Glucophage Xr) 500 mg DAILYWBKFT PO Last administered on at 08:50; Start 04/01/18 at 17:30 Hydrochlorothiazide (Microzide) 12.5 mg DAILY PO Last administered on at 08:53; Start 04/02/18 at 09:00 Clopidogrel Bisulfate (Plavix) 75 mg DAILYWBKFT PO Last administered on at 08:50; Start 04/02/18 at 09:00 Active Scripts Active Reported [Cbd Oil] 1 Cornelia PO DAILY Clopidogrel (Clopidogrel Bisulfate) 75 Mg Tablet 75 Mg PO DAILY Lisinopril-Hctz 20-12.5 Mg Tab (Lisinopril/Hydrochlorothiazide) 1 Each Tablet 1 Tab PO DAILY Metformin Hcl Er (Metformin Hcl) 500 Mg Tab.er.24h 500 Mg PO DAILY Aspirin 81 Mg Tab.chew 81 Mg PO DAILY Vitals/I & O Vital Sign - Last 24 Hours 04/02/18 04/02/18 04/02/18 04/02/18 13:48 14:55 18:06 19:50 Temp 100.1 99.2 100.1 99.2 Pulse 98 101 Resp 18 20 20 B/P (MAP) 91/59 (70) 92/63 (73) Pulse Ox 95 94 O2 Delivery Room Air Room Air Room Air Room Air 04/02/18 04/02/18 04/03/18 04/03/18 20:50 22:29 01:29 02:30 Temp 99.6 99.6 Pulse 101 Resp 18 20 20 B/P (MAP) 100/57 (71) Pulse Ox 93 O2 Delivery Room Air Room Air 04/03/18 04/03/18 04/03/18 04/03/18 03:10 06:03 08:30 08:50 Temp 99.8 99.0 99.8 99.0 Pulse 105 99 Resp 18 16 B/P (MAP) 105/63 (77) 93/57 (69) Pulse Ox 91 93 O2 Delivery Room Air Room Air Room Air Room Air 04/03/18 04/03/18 04/03/18 08:54 08:55 10:54 Temp 98.9 98.9 Pulse 109 109 94 Resp 16 B/P (MAP) 130/78 130/78 (95) 97/64 (75) O2 Delivery Room Air Intake and Output 04/02/18 04/02/18 04/03/18 15:00 23:00 07:00 Intake Total 120 ml 180 ml 150 ml Output Total 250 ml 200 ml Balance -130 ml 180 ml -50 ml PATRICE NUNES SPECIAL OFFICER Apr 03, 2018 11:53
--- NOTE | 2018-04-04 15:08 | PATHOLOGY ---
[facility] Accession Number: [id number] . 01 Material submitted: . LUMBAR DECOMPRESSION WITH SYNOVIAL CYST . 01 Clinical history: . Lumbar stenosis, herniated disc with radiculopathy, synovial cyst, scoliosis . 02 Diagnosis: Segments of fibrocartilaginous, fibroadipose, skeletal muscle and synovial tissue and bone, lumbar decompression: - Degenerative changes of fibrocartilaginous tissue. - Small segments of synovial tissue consistent with synovial cyst. [facility]/04/04/2018 . 02 Comment: There is no evidence of an acute inflammatory process or malignancy. (JPM:pit 04/04/2018) . 02 Electronically signed: . Best Lane MD, Pathologist NPI- [id number] . 01 Gross description: . Received in formalin labeled "Eder Willingham, lumbar decompression with synovial cyst," is a 6.2 x 3.4 x 0.7 cm aggregate of white-lund to lund-brown soft tissue admixed with bone fragments. Dietary Assistant soft tissue is submitted in cassette A1, and promotional representative bone is submitted in cassette A2 following decalcification. (DAC; 04/03/2018) XDC/XDC . 02 Pathologist provided ICD-10: M51.36 . 02 CPT . 427703, 105683 Specimen Comment: A courtesy copy of this report has been sent to Specimen Comment: [phone], . Specimen Comment: Report sent to / DR SLATER Specimen Comment: A duplicate report has been generated due to demographic updates. Performed at: [address], [place], [place] [id number] MD Jann Duggan MD Phone: [phone] Performed at: 02 [facility] [address] [place], [place] [id number] [address] MD Phone: [phone]
== END 2018-04-03 15:51 | disposition home or self-care (01) | DRG 517 ==
LOC: SURG 08:18 → 4 SOUTHEST 15:00 → OBSVTOIN 04-03 08:37
PROVIDERS: ADMIT Neurological Surgery; ATTEND Neurological Surgery
PROC: 4A11X4G Monitoring of Peripheral Nervous Electrical Activity, Intraoperative, External Approach (ICD-10-PCS; 2018-04-01)
PROC: 01NB0ZZ Release Lumbar Nerve, Open Approach (ICD-10-PCS; principal; 2018-04-01 10:30)
DX: M48.062 Spinal stenosis, lumbar region with neurogenic claudication (principal); E88.2 Lipomatosis, not elsewhere classified; E11.9 Type 2 diabetes mellitus without complications; I10 Essential (primary) hypertension; I25.2 Old myocardial infarction; M54.16 Radiculopathy, lumbar region; M41.26 Other idiopathic scoliosis, lumbar region; M19.90 Unspecified osteoarthritis, unspecified site; M71.38 Other bursal cyst, other site; Z83.3 Family history of diabetes mellitus; Z85.46 Personal history of malignant neoplasm of prostate; Z95.5 Presence of coronary angioplasty implant and graft; Z95.1 Presence of aortocoronary bypass graft
CPT/HCPCS: 76000; 82962; 88304; 88311; 93005; A7015; G0378; G0379; J0690; J1100; J1885; J2250; J2405; J2704; J2710; J3010; J3490; J7030; J7120; Q0163; 97110; 97116; 97530